=== PATIENT | male | born 1990 | race Two or more races ===

== ENCOUNTER 2020-02-28 10:55 | Inpatient (IN) | payer OTHER ==
[~2020-02-28] VITALS: Ht 175.3 cm; Wt 91.0 kg
[2020-02-28] MEDS ORDERED: MELATONIN 3 MG TABLET PO PRN (15:15)
[2020-02-28 16:21] VITALS: BP 124/86
[2020-02-28] MEDS: SENNA 187 MG TABLET PO SCH (20:13)
[2020-02-28] MEDS: ATORVASTATIN CALCIUM 40 MG TABLET PO SCH (20:13)
[2020-02-28] MEDS: DOCUSATE SODIUM 100 MG CAPSULE PO SCH (20:13)
[2020-02-28 23:27] VITALS: BP 117/61
[2020-02-29 06:54] LABS: BASOPHILS % (AUTO) 1.1 % (0.0-2.0); EOSINOPHILS % (AUTO) 4.3 % (1.0-6.0); HEMATOCRIT 42.2 % (41-53); HEMOGLOBIN 14.3 g/dL (13.5-17.5); LYMPHOCYTES # (AUTO) 2.4 K/uL (1.0-4.8); MEAN CORPUSCULAR HEMOGLOBIN 30.4 pg (26.0-34.0); MEAN CORPUSCULAR HGB CONC 33.8 G/dL (31.0-37.0); MEAN CORPUSCULAR VOLUME 90 fL (80-100); MONOCYTES # (AUTO) 0.5 K/uL (0.1-1.0); MONOCYTES % (AUTO) 9.5 % (2.0-9.0); NEUTROPHILS # (AUTO) 2.2 K/uL (1.8-7.7); NEUTROPHILS % (AUTO) 40.1 % (40.0-70.0); PLATELET COUNT (AUTO) 236 K/uL (150-450); RED BLOOD CELL COUNT(AUTO) 4.69 MIL/uL (4.50-5.90); RED CELL DISTRIBUTION WIDTH 13.5 % (11.5-14.5)
[2020-02-29 07:07] LABS: ALANINE AMINOTRANSFERASE 55 U/L (12-78); ALBUMIN 3.5 g/dL (3.4-5.0); ALKALINE PHOSPHATASE 66 U/L (46-116); ANION GAP 10 mmol/L (8-16); ASPARTATE AMINOTRANSFERASE 31 U/L (15-37); BILIRUBIN,TOTAL 0.5 mg/dL (0.1-1.0); CALCIUM, TOTAL 9.2 mg/dL (8.8-10.5); CARBON DIOXIDE 27 mmol/L (22-29); CHLORIDE 105 mmol/L (98-107); CREATININE 1.09 mg/dL (0.60-1.30); GLOMERULAR FILTR. RATE CALC > 60 mL/min (>60); GLUCOSE,RANDOM 92 mg/dL (70-110); POTASSIUM 3.8 mmol/L (3.5-5.1); SODIUM SERUM 142 mmol/L (136-145); TOTAL PROTEIN, SERUM 6.6 g/dL (6.4-8.2); UREA NITROGEN, BLOOD 19 mg/dL (7-18)
[2020-02-29] MEDS: ASPIRIN 325 MG EC TABLET PO SCH (10:24)
[2020-02-29] MEDS: DOCUSATE SODIUM 100 MG CAPSULE PO SCH ×2 (10:24→20:26)
[2020-02-29 10:28] VITALS: BP 109/59
[2020-02-29 19:05] VITALS: BP 123/71
[2020-02-29] MEDS: ATORVASTATIN CALCIUM 40 MG TABLET PO SCH (20:26)
[2020-02-29] MEDS: SENNA 187 MG TABLET PO SCH (20:26)
[2020-02-29 23:57] VITALS: BP 119/61
[2020-03-01] MEDS: ASPIRIN 325 MG EC TABLET PO SCH (08:39)
[2020-03-01] MEDS: DOCUSATE SODIUM 100 MG CAPSULE PO SCH ×2 (08:39→20:28)
[2020-03-01 09:03] VITALS: BP 92/65
[2020-03-01 16:31] VITALS: BP 112/71
[2020-03-01 17:46] LABS: BASOPHILS % (AUTO) 1.4 % (0.0-2.0); EOSINOPHILS % (AUTO) 4.7 % (1.0-6.0); HEMOGLOBIN 15.3 g/dL (13.5-17.5); LYMPHOCYTES # (AUTO) 1.8 K/uL (1.0-4.8); LYMPHOCYTES % (AUTO) 40.7 % (22.0-44.0); MEAN CORPUSCULAR HEMOGLOBIN 31.1 pg (26.0-34.0); MEAN CORPUSCULAR HGB CONC 34.7 G/dL (31.0-37.0); MEAN CORPUSCULAR VOLUME 90 fL (80-100); MONOCYTES # (AUTO) 0.5 K/uL (0.1-1.0); MONOCYTES % (AUTO) 10.8 % (2.0-9.0); NEUTROPHILS # (AUTO) 1.8 K/uL (1.8-7.7); NEUTROPHILS % (AUTO) 42.4 % (40.0-70.0); PLATELET COUNT (AUTO) 225 K/uL (150-450); RED BLOOD CELL COUNT(AUTO) 4.91 MIL/uL (4.50-5.90); RED CELL DISTRIBUTION WIDTH 13.4 % (11.5-14.5)
[2020-03-01 17:59] LABS: ALANINE AMINOTRANSFERASE 60 U/L (12-78); ALBUMIN 3.5 g/dL (3.4-5.0); ALKALINE PHOSPHATASE 75 U/L (46-116); ANION GAP 4 mmol/L (8-16); ASPARTATE AMINOTRANSFERASE 31 U/L (15-37); BILIRUBIN,TOTAL 0.4 mg/dL (0.1-1.0); CALCIUM, TOTAL 9.5 mg/dL (8.8-10.5); CARBON DIOXIDE 30 mmol/L (22-29); CHLORIDE 108 mmol/L (98-107); CREATININE 1.14 mg/dL (0.60-1.30); GLOMERULAR FILTR. RATE CALC > 60 mL/min (>60); GLUCOSE,RANDOM 96 mg/dL (70-110); POTASSIUM 4.1 mmol/L (3.5-5.1); SODIUM SERUM 142 mmol/L (136-145); TOTAL PROTEIN, SERUM 6.8 g/dL (6.4-8.2); UREA NITROGEN, BLOOD 16 mg/dL (7-18)
[2020-03-01] MEDS: SENNA 187 MG TABLET PO SCH (20:27)
[2020-03-01] MEDS: ATORVASTATIN CALCIUM 40 MG TABLET PO SCH (20:28)
[2020-03-02] VITALS: BP 126/63
[2020-03-02 08:03] VITALS: BP 117/80
[2020-03-02] MEDS: ASPIRIN 325 MG EC TABLET PO SCH (08:41)
[2020-03-02] MEDS: DOCUSATE SODIUM 100 MG CAPSULE PO SCH ×2 (08:42→19:57)
[2020-03-02] MEDS: ACETAMINOPHEN 325 MG TABLET PO PRN (09:50)
[2020-03-02] MEDS: FLUoxetine HCL 10 MG CAPSULE PO SCH (11:30)
[2020-03-02 17:06] VITALS: BP 110/64
[2020-03-02] MEDS: ATORVASTATIN CALCIUM 40 MG TABLET PO SCH (19:57)
[2020-03-02] MEDS: SENNA 187 MG TABLET PO SCH (19:57)
[2020-03-03 04:40] VITALS: BP 113/70
[2020-03-03] MEDS: ASPIRIN 325 MG EC TABLET PO SCH (08:26)
[2020-03-03] MEDS: DOCUSATE SODIUM 100 MG CAPSULE PO SCH ×2 (08:26→20:00)
[2020-03-03] MEDS: FLUoxetine HCL 10 MG CAPSULE PO SCH (09:00)
[2020-03-03 09:35] VITALS: BP 134/88
[2020-03-03] MEDS: ACETAMINOPHEN 325 MG TABLET PO PRN (13:51)
[2020-03-03 17:00] VITALS: BP 129/67
[2020-03-03] MEDS: SENNA 187 MG TABLET PO SCH (20:00)
[2020-03-03] MEDS: ATORVASTATIN CALCIUM 40 MG TABLET PO SCH (20:00)
[2020-03-04] VITALS: BP 112/69
[2020-03-04] MEDS: ASPIRIN 325 MG EC TABLET PO SCH (09:00)
[2020-03-04] MEDS: DOCUSATE SODIUM 250 MG CAPSULE PO SCH ×2 (09:00→20:20)
[2020-03-04] MEDS: FLUoxetine HCL 10 MG CAPSULE PO SCH (09:00)
[2020-03-04 10:26] VITALS: BP 101/71
[2020-03-04 16:04] VITALS: BP 116/69
[2020-03-04] MEDS: SENNA 187 MG TABLET PO SCH (20:20)
[2020-03-04] MEDS: ATORVASTATIN CALCIUM 40 MG TABLET PO SCH (20:20)
[2020-03-04 23:30] VITALS: BP 121/62
[2020-03-05] MEDS: FLUoxetine HCL 10 MG CAPSULE PO SCH (08:28)
[2020-03-05] MEDS: ASPIRIN 325 MG EC TABLET PO SCH (08:28)
[2020-03-05] MEDS: DOCUSATE SODIUM 250 MG CAPSULE PO SCH ×2 (08:28→21:09)
[2020-03-05 08:34] VITALS: BP 109/62
[2020-03-05 16:45] VITALS: BP 129/63
[2020-03-05] MEDS: ATORVASTATIN CALCIUM 40 MG TABLET PO SCH (21:09)
[2020-03-05] MEDS: SENNA 187 MG TABLET PO SCH (21:09)
[2020-03-06] VITALS: BP 110/60
[2020-03-06 08:50] VITALS: BP 100/56
[2020-03-06] MEDS: DOCUSATE SODIUM 250 MG CAPSULE PO SCH ×2 (08:51→20:41)
[2020-03-06] MEDS: FLUoxetine HCL 10 MG CAPSULE PO SCH (08:51)
[2020-03-06] MEDS: ASPIRIN 325 MG EC TABLET PO SCH (08:51)
[2020-03-06 16:02] VITALS: BP 104/58
[2020-03-06] MEDS: ATORVASTATIN CALCIUM 40 MG TABLET PO SCH (20:41)
[2020-03-06] MEDS: SENNA 187 MG TABLET PO SCH (20:41)
[2020-03-06] MEDS: MAGNESIUM HYDROXIDE SUSPENSION 30 ML UDCUP PO PRN (20:41)
[2020-03-07 05:00] VITALS: BP 116/51
[2020-03-07 09:00] VITALS: BP 101/59
[2020-03-07] MEDS: ASPIRIN 325 MG EC TABLET PO SCH (09:12)
[2020-03-07] MEDS: DOCUSATE SODIUM 250 MG CAPSULE PO SCH ×2 (09:12→20:41)
[2020-03-07] MEDS: FLUoxetine HCL 10 MG CAPSULE PO SCH (09:12)
[2020-03-07] MEDS: MAGNESIUM HYDROXIDE SUSPENSION 30 ML UDCUP PO PRN (09:12)
[2020-03-07 16:00] VITALS: BP 113/68
[2020-03-07] MEDS: ATORVASTATIN CALCIUM 40 MG TABLET PO SCH (20:41)
[2020-03-07] MEDS: SENNA 187 MG TABLET PO SCH (20:41)
[2020-03-08] VITALS: BP 108/61
[2020-03-08 08:10] VITALS: BP 107/53
[2020-03-08] MEDS: FLUoxetine HCL 10 MG CAPSULE PO SCH (08:50)
[2020-03-08] MEDS: ASPIRIN 325 MG EC TABLET PO SCH (08:50)
[2020-03-08] MEDS: DOCUSATE SODIUM 250 MG CAPSULE PO SCH ×2 (08:50→19:40)
[2020-03-08 16:00] VITALS: BP 117/73
[2020-03-08] MEDS: SENNA 187 MG TABLET PO SCH (19:40)
[2020-03-08] MEDS: ATORVASTATIN CALCIUM 40 MG TABLET PO SCH (19:40)
[2020-03-09] MEDS ORDERED: ASPI-1149 PO (01:20)
[2020-03-09] MEDS ORDERED: DOCU-350 PO (01:20)
[2020-03-09] MEDS ORDERED: PROZ10 PO (01:20)
[2020-03-09] MEDS ORDERED: ATOR40TA28 PO (01:20)
[2020-03-09] MEDS ORDERED: SENN8.6T90 PO ×2 (01:20→09:40)
[2020-03-09 06:08] VITALS: BP 123/65
[2020-03-09 08:15] VITALS: BP 116/76
[2020-03-09] MEDS: DOCUSATE SODIUM 250 MG CAPSULE PO SCH (08:37)
[2020-03-09] MEDS: ASPIRIN 325 MG EC TABLET PO SCH (08:37)
[2020-03-09] MEDS: FLUoxetine HCL 10 MG CAPSULE PO SCH (08:37)
== END 2020-03-09 13:39 | disposition home health service (06) | DRG 66 ==
LOC: 2WR 14:20
PROVIDERS: ADMIT Physical Medicine & Rehabilitation; ATTEND Physical Medicine & Rehabilitation
DX: I63.9 Cerebral infarction, unspecified (principal); R26.9 Unspecified abnormalities of gait and mobility; F32.9 Major depressive disorder, single episode, unspecified; F41.9 Anxiety disorder, unspecified
CPT/HCPCS: 87081; 92507; 92523; 97110; 97112; 97116; 97163; 97166; 97530; 97535; 99366